=== PATIENT | male | born 1945 | race Caucasian/White ===

== ENCOUNTER 2024-05-16 21:26 | Emergency (ER) | payer OTHER ==
[~2024-05-16] VITALS: Ht 177.8 cm; Wt 74.8 kg
[2024-05-16 21:30] VITALS: PULSE 86; RESP 17; TEMP 98.9
[2024-05-17 00:03] LABS: BASOPHILS % 0.3 % (0.0-1.0); EOSINOPHILS % 0.1 % (0.0-6.0); HEMATOCRIT 39.5 % (38.2-49.6); HEMOGLOBIN 13.2 g/dL (14.0-18.0); LYMPHOCYTES # (AUTO) 0.5 (1.0-3.2); MEAN CORPUSCULAR HEMOGLOBIN 32.4 pg (28-32); MEAN CORPUSCULAR HGB CONC 33.4 g/dL (31-35); MEAN CORPUSCULAR VOLUME 97.1 fL (81-99); MONOCYTES % 9.2 % (4.4-11.3); NEUTROPHILS # (AUTO) 9.2 (2.1-6.9); NEUTROPHILS % 85.1 % (38.7-80.0); PLATELET COUNT 201 x10e3/uL (140-360); RED BLOOD COUNT 4.07 x10e6/uL (4.3-5.7); RED CELL DISTRIBUTION WIDTH 12.9 % (11.7-14.4); WHITE BLOOD COUNT 10.78 x10e3/uL (4.8-10.8)
[2024-05-17 00:17] LABS: PROTHROMBIN TIME 13.8 seconds (11.9-14.5)
[2024-05-17 00:27] LABS: ALBUMIN 3.7 g/dL (3.5-5.0); ALBUMIN/GLOBULIN RATIO 1.2 (0.8-2.0); ANION GAP 15.3 mmol/L (8-16); BILIRUBIN,TOTAL 1.1 mg/dL (0.2-1.2); CALCIUM 9.6 mg/dL (8.4-10.2); CREATININE, SERUM 1.12 mg/dL (0.72-1.25); POTASSIUM 4.3 mmol/L (3.5-5.1); TOTAL PROTEIN 6.7 g/dL (6.5-8.1)
[2024-05-17 02:24] VITALS: BP 129/84; PULSE 74; RESP 18; TEMP 98.3; O2SAT 99
[2024-05-17] MEDS ORDERED: IOPAMIDOL 370 MG/ML 100 ML INFUS..BTL INJ ONE (06:56)
== END 2024-05-17 01:44 | disposition home or self-care (01) ==
LOC: ER 21:42
DX: R30.0 Dysuria (principal); N30.91 Cystitis, unspecified with hematuria; R33.9 Retention of urine, unspecified; K57.90 Diverticulosis of intestine, part unspecified, without perforation or abscess without bleeding; I10 Essential (primary) hypertension
CPT/HCPCS: 36415; 51702; 74177; 80053; 85025; 85610; 99284; Q9967; 51700

== ENCOUNTER 2024-08-11 05:04 | Emergency (ER) | payer OTHER ==
[~2024-08-11] VITALS: Ht 177.8 cm; Wt 74.8 kg
[2024-08-11] MEDS ORDERED: LIDOCAINE JELLY 2% 10ML URO-JET ONE (05:09)
[2024-08-11 05:15] VITALS: TEMP 98
[2024-08-11 05:18] VITALS: PULSE 89; RESP 24
[2024-08-11] MEDS: LIDOCAINE JELLY 2% 10ML URO-JET TOP ONE (05:40)
[2024-08-11 06:26] VITALS: BP 157/78; PULSE 74; RESP 18; O2SAT 100
== END 2024-08-11 06:30 | disposition home or self-care (01) ==
LOC: ER 05:12
DX: R33.9 Retention of urine, unspecified (principal); N40.1 Benign prostatic hyperplasia with lower urinary tract symptoms; R42 Dizziness and giddiness; R11.2 Nausea with vomiting, unspecified; I10 Essential (primary) hypertension
CPT/HCPCS: 99283